=== PATIENT | female | born 1975 | race Caucasian/White ===

== ENCOUNTER 2019-04-24 16:23 | Emergency (ER) | payer MEDICAID, OTHER ==
[~2019-04-24] VITALS: Ht 170.2 cm; Wt 69.0 kg
[~2019-04-24 16:23] MED LIST: BACI3.5O2 EACHEYE; CYCL-1 PO; IBUP-1986 PO
[2019-04-24] MEDS ORDERED: AZIT-31 PO (16:58)
[2019-04-24] MEDS ORDERED: BENZ-16 PO (16:58)
[2019-04-24 17:11] VITALS: BP 140/90
== END 2019-04-24 17:13 | disposition home or self-care (01) ==
LOC: ER 16:23
DX: J06.9 Acute upper respiratory infection, unspecified (principal); R10.84 Generalized abdominal pain; J44.9 Chronic obstructive pulmonary disease, unspecified; Z88.5 Allergy status to narcotic agent; Z88.8 Allergy status to other drugs, medicaments and biological substances; Z88.6 Allergy status to analgesic agent; Z79.2 Long term (current) use of antibiotics; Z79.899 Other long term (current) drug therapy
CPT/HCPCS: 99284

== ENCOUNTER 2020-06-14 17:03 | Emergency (ER) | payer MEDICAID, OTHER ==
[~2020-06-14] VITALS: Ht 172.7 cm; Wt 86.0 kg
[2020-06-14] MEDS ORDERED: NAPR-56 PO (18:29)
[2020-06-14] MEDS ORDERED: ketorolac trometh. 30mg/ml inj. IM ONE (18:30)
--- NOTE | 2020-06-14 18:33 | NUR ---
HARI LEVY, AT BEDSIDE TO UPDATE PT ON DC INSTRUCTIONS.
[2020-06-14 18:52] VITALS: BP 119/61
== END 2020-06-14 19:08 | disposition home or self-care (01) ==
LOC: ER 17:03
DX: M25.561 Pain in right knee (principal); J44.9 Chronic obstructive pulmonary disease, unspecified; Z88.6 Allergy status to analgesic agent; Z88.5 Allergy status to narcotic agent; Z79.899 Other long term (current) drug therapy
CPT/HCPCS: 29505; 73564; 96372; 99283; J1885

== ENCOUNTER 2021-02-22 05:28 | Day surgery (SDC) | payer MEDICAID ==
[2021-02-15 10:39] LABS: BASOPHILS % (AUTO) 0.3 % (0-1); EOSINOPHILS # (AUTO) 0.1 X10'3 (0-0.9); EOSINOPHILS % (AUTO) 1.2 % (0-6); LYMPHOCYTES # (AUTO) 1.4 X10'3 (1.1-4.8); LYMPHOCYTES % (AUTO) 19.2 % (21-51); MEAN CORPUSCULAR HEMOGLOBIN 30.3 PG (27.0-31.0); MEAN CORPUSCULAR HGB CONC 34.5 g/dL (33.0-36.5); MEAN CORPUSCULAR VOLUME 87.9 FL (78-98); MONOCYTES # (AUTO) 0.5 X10'3 (0-0.9); MONOCYTES % (AUTO) 6.5 % (2-12); NEUTROPHILS # (AUTO) 5.3 X10'3 (1.8-7.7); NEUTROPHILS % (AUTO) 72.8 % (42-75); PRE OP HEMATOCRIT 41.1 % (35.0-45.0); PRE OP HEMOGLOBIN 14.2 g/dL (12.0-16.0); PRE OP PLATELET COUNT 229 X10'3 (140-440); RED BLOOD COUNT 4.68 X10'6 (4.20-5.60); RED CELL DISTRIBUTION WIDTH 13.2 % (11.5-14.5)
[2021-02-15 10:53] LABS: ALBUMIN 3.9 G/DL (3.4-5.0); ALBUMIN/GLOBULIN RATIO 1.1 (1.1-1.5); ALKALINE PHOSPHATASE 47 IU/L (46-116); BLOOD UREA NITROGEN 12 MG/DL (7-18); BUN/CREATININE RATIO 14.8 (6.6-38.0); CALCIUM 8.5 MG/DL (8.5-10.1); CHLORIDE 107 MMOL/L (99-107); CREATININE 0.81 MG/DL (0.40-0.90); PRE OP ALT 24 U/L (30-65); PRE OP ANION GAP 5 (8-16); PRE OP AST 12 U/L (10-37); PRE OP BILIRUB, TOTAL 0.4 MG/DL (0.0-1.0); PRE OP GLUCOSE 87 MG/DL (70-104); PRE OP POTASSIUM 3.6 MMOL/L (3.4-5.1); PRE OP SODIUM 140 MMOL/L (135-145); TOTAL PROTEIN 7.3 G/DL (6.4-8.2); eGFR 75 ML/MIN
[~2021-02-22] VITALS: Ht 170.2 cm; Wt 79.4 kg
[2021-02-22] VITALS (22 sets, daily range): BP systolic 123–165; BP diastolic 66–97
[~2021-02-22 05:28] MED LIST changes: +AMOX500C4 PO; -BACI3.5O2 EACHEYE; -CYCL-1 PO; -IBUP-1986 PO; +MULT-1085 PO; +PROBIOTIC GUMMIES PO; +ringers solution, lacted 1,000 ML IV SCH
[2021-02-22] MEDS ORDERED: vancomycin 1,500 MG in NS 300ml IV soln IV ONE (05:30)
[2021-02-22] MEDS ORDERED: albuterol 2.5 MG/3 ML nebule NEB ONE (05:30)
[2021-02-22] MEDS ORDERED: cefazolin/dext.iso 2gm/50ml IV ONE (05:30)
[2021-02-22] MEDS ORDERED: famotidine 20mg tablet PO ONE (05:30)
[2021-02-22] MEDS ORDERED: LIDOcaine 1% (10mg/ml) 2ml vial ONE (06:00)
[2021-02-22] MEDS ORDERED: triamcinolone acetonide 40mg/ml inj ONE (06:56)
[2021-02-22] MEDS ORDERED: BUPIVAcaine/PF 2.5mg/ml (0.25%) 10ml vial ONE (06:56)
[2021-02-22] MEDS ORDERED: fentaNYL/PF 50MCG/1 ML 2ML syringe IV PRN ×2 (07:25)
[2021-02-22] MEDS ORDERED: hydrALAZINE 20mg/ml inj. IV PRN (07:25)
[2021-02-22] MEDS ORDERED: labetalol 20mg/4ml (5mg/ml) syringe IV PRN (07:25)
[2021-02-22] MEDS ORDERED: acetaminophen 1,000mg/100ml IV 100 ML IV PRN (07:25)
[2021-02-22] MEDS ORDERED: ringers solution, lacted 1,000 ML IV SCH (07:25)
[2021-02-22] MEDS ORDERED: meperidine/PF 25mg/ml syringe IV PRN ×3 (07:25)
[2021-02-22] MEDS ORDERED: proCHLORperazine 10 MG/2 ml inj IV PRN (07:25)
[2021-02-22] MEDS ORDERED: ondansetron/PF 4mg/2ml inj IV PRN (07:25)
[2021-02-22] MEDS ORDERED: ondansetron/PF 4mg/2ml inj ONE (07:28)
[2021-02-22] MEDS ORDERED: sevoflurane 250ml liquid IH ONE (07:28)
[2021-02-22] MEDS ORDERED: dexamethasone sod phosphate 10mg/ml inj ONE (07:28)
[2021-02-22] MEDS ORDERED: midazolam 1 mg/ML 2ml injection ONE (07:33)
[2021-02-22] MEDS ORDERED: LIDOcaine 2% (20mg/ml) 5ml vial ONE (07:40)
[2021-02-22] MEDS ORDERED: propofol inj 20 ML IV ONE ×2 (07:40→07:58)
[2021-02-22] MEDS ORDERED: fentaNYL/PF 50MCG/1 ML 2ML syringe ONE (07:45)
--- NOTE | 2021-02-22 08:45 | NUR ---
Received from OR via , accompanied by Anesthesiologist DR ANDERSON and report given by AnesthesiolgistLawrence Prince[T PRESENTS WITH 20G LEFT HAND, RIGHT KNEE DRESSING DRY AND INTACT, VSS. Addendum: 02/22/21 at 0947 by Gisela Iqbal RN, RN Amended: Links added.
[2021-02-22] MEDS ORDERED: morphine 10mg/ml inj. ONE (08:50)
--- NOTE | 2021-02-22 10:03 | NUR ---
PT IS CRYING AND REPORTS THAT "I CAN NOT GO THROUGH THIS ALONE". PT IS REQUESTING CREATIVE CONSULTANT. CREATIVE CONSULTANT PAGED AT THIS TIME. Addendum: 02/22/21 at 1004 by Gisela Iqbal RN, RN Amended: Links added.
--- NOTE | 2021-02-22 11:31 | NUR ---
FLEX O WRITER OPERATOR NELSON AT BEDSIDE. [facility] Addendum: 02/22/21 at 1132 by Gisela Iqbal RN, RN Amended: Links added.
--- NOTE | 2021-02-22 12:01 | NUR ---
PT TO [facility] UNIT, REPORT GIVEN TO NAVEEN NEGRETE. PT WAITING FOR RIDE THAT WILL BE HERE IN 1 HOUR. Addendum: 02/22/21 at 1202 by Gisela Iqbal RN, RN Amended: Links added.
--- NOTE | 2021-02-22 12:10 | NUR ---
Pt to [facility] via [facility]. Waiting for ride home.
--- NOTE | 2021-02-22 12:30 | NUR ---
pt doing well, still awaiting ride. some c/o nausea however tolerating lemon [facility] [facility] [employer] soda and crackers well. no emesis.
--- NOTE | 2021-02-22 13:20 | NUR ---
spoke to pts ride, had car troubles and will be here within 40 minutes or so he states. pt continues to rest comfortably. falls asleep often. states readiness for dc to home.
--- NOTE | 2021-02-22 13:45 | NUR ---
pt was discharged to home safely. Instructions reviewed w/ pt and pt states understanding and readiness for home. crutches home w/ pt, crutches adjusted to pt height and she states she has used them before. All belongings w/ pt upon d/c to home. pt d/c'd safely to home via truck being driven by personal friend.
== END 2021-02-22 15:15 | disposition home or self-care (01) ==
LOC: PAS 05:28
PROVIDERS: ATTEND Orthopaedic Surgery
DX: S83.211A Bucket-handle tear of medial meniscus, current injury, right knee, initial encounter (principal); S83.271A Complex tear of lateral meniscus, current injury, right knee, initial encounter; M17.11 Unilateral primary osteoarthritis, right knee; M94.261 Chondromalacia, right knee; K21.9 Gastro-esophageal reflux disease without esophagitis; F32.9 Major depressive disorder, single episode, unspecified; E78.5 Hyperlipidemia, unspecified; E66.8 Other obesity; Z68.29 Body mass index [BMI] 29.0-29.9, adult; M17.0 Bilateral primary osteoarthritis of knee; J43.9 Emphysema, unspecified; Z20.822 Contact with and (suspected) exposure to COVID-19; Z88.5 Allergy status to narcotic agent; Z79.899 Other long term (current) drug therapy; Z98.51 Tubal ligation status; Z90.710 Acquired absence of both cervix and uterus; Z87.891 Personal history of nicotine dependence; Z86.14 Personal history of Methicillin resistant Staphylococcus aureus infection; X58.XXXA Exposure to other specified factors, initial encounter; Y92.89 Other specified places as the place of occurrence of the external cause; Y93.89 Activity, other specified; Y99.8 Other external cause status
CPT/HCPCS: 29873; 29879; 29880; 36415; 80053; 82948; 85025; 93005; J0690; J1100; J2250; J2274; J2405; J2704; J3010; J3301; J3370; J3490; J7040; J7120; U0003; U0005; Z7506; Z7508; Z7512; A4215; A4618; A6250; A6449; A7000